=== PATIENT | female | born 1965 | race Caucasian/White ===

== ENCOUNTER → 2018-03-25 11:03 | Outpatient (CLI) | payer OTHER, SELFPAY ==
--- NOTE | 2018-03-25 | DI.RAD.S_ITS ---
PROCEDURE: XR KNEE LT 3V INDICATIONS: PAIN IN LEFT KNEE TECHNIQUE: 3 views of the knee were acquired. COMPARISON: None. FINDINGS: Bones: No fractures or dislocations. No suspicious bony lesions. Mild medial femoral tibial compartment joint space narrowing is seen. No significant patellar subluxation. Soft tissues: There is small amount of suprapatellar joint effusion. No suspicious soft tissue calcifications. IMPRESSION: Mild medial femoral tibial compartment osteoarthritis. Small joint effusion. No fracture or dislocation. Dictated by: Joseph Jj M.D. on 03/25/2018 at 11:23 Approved by: Joseph Jj M.D. on 03/25/2018 at 11:24
== END ==
PROVIDERS: Visit Provider Physician Assistant
DX: M25.562 Pain in left knee (principal); M17.12 Unilateral primary osteoarthritis, left knee; M25.462 Effusion, left knee
CPT/HCPCS: 73562

== ENCOUNTER → 2019-05-23 12:05 | Outpatient (CLI) | payer OTHER, SELFPAY ==
--- NOTE | 2019-05-23 | DI.US.S_ITS ---
PROCEDURE: US PELVIC COMPLETE INDICATIONS: Postmenopausal bleeding TECHNIQUE: Real-time scanning was performed of the pelvic organs, with image documentation. Additional endovaginal scanning was necessary due to incomplete visualization of the adnexal and endometrial structures by transabdominal scanning. COMPARISON: None. FINDINGS: Transabdominal scanning: Limited scanning through the kidneys shows no hydronephrosis. No pathologic free abdominal or pelvic fluid. The uterus is vertically oriented, slightly anteverted. Endovaginal scanning: Uterus: Uterus is normal in size at 9.8 x 4.9 x 6.3 cm including the cervix. The endometrium is ill defined and potentially enlarged measuring 14.2 mm in combined thickness. Ovaries: Neither ovary was seen. No suspicious adnexal masses or fluid. IMPRESSION: 1. Ill-defined endometrium with possible thickening. Further evaluation with gynecologic protocol pelvic MRI, is recommended. 2. Nonvisualization of either ovary, likely atrophic and age-appropriate. Dictated by: Jazmyn Macias M.D. on 05/23/2019 at 17:57 Approved by: Jazmyn Macias M.D. on 05/23/2019 at 18:11
== END ==
PROVIDERS: Visit Provider Student in an Organized Health Care Education/Training Program
DX: N95.0 Postmenopausal bleeding (principal)
CPT/HCPCS: 76830; 76856

== ENCOUNTER → 2019-06-07 15:49 | Outpatient (CLI) | payer OTHER, SELFPAY ==
--- NOTE | 2019-06-07 | DI.MRI.S_ITS ---
PROCEDURE: MR PELVIS WO/W CON INDICATIONS: Postmenopausal bleeding TECHNIQUE: Coronal HASTE, sagittal breath-hold T2 FSE; axial T1 FSE with and without fat saturation through the pelvis. Optional long- and short-axis uterine nonbreath-hold T2 FSE through the uterus. Sagittal or axial dynamic VIBE during administration of contrast. Post-contrast axial or coronal VIBE/2-D FLASH with fat saturation from the iliac crests to the symphysis. Optional diffusion weighted imaging and ADC may be performed. COMPARISON: None. FINDINGS: Image quality: Excellent. Uterus: Uterus is normal in size. Endometrium measures approximately 12 mm. This is slightly less prominent when compared to pelvic ultrasound. Endometrium is mildly heterogeneous. However, no distinct mass is clearly identified. Adnexa: Both ovaries are small and grossly within normal limits Urinary system: Bladder wall is normal in thickness. Distal ureters are non distended. Urethra appears normal in morphology. Nodes and vessels: No pelvic or inguinal adenopathy by size criteria. Iliac vessels are normal in size. Bowel and peritoneum: No pathologic free pelvic fluid. Inferior colon and small bowel loops are normal in caliber. Soft tissues: No inguinal hernias. No findings of pelvic floor incompetence in the absence of provocation. Bones: Marrow demonstrates normal overall signal. IMPRESSION: 1. Thickened endometrium, in a setting of postmenopausal bleeding. While no distinct mass is clinically identified, endometrium does have an irregular appearance. As noted on pelvic ultrasound, endometrial biopsy is recommended to exclude underlying neoplasm. Dictated by: Marjorie Pollard M.D. on 06/07/2019 at 17:15 Approved by: Marjorie Pollard M.D. on 06/07/2019 at 17:19
== END ==
PROVIDERS: PCP Student in an Organized Health Care Education/Training Program; Visit Provider Student in an Organized Health Care Education/Training Program
DX: N95.0 Postmenopausal bleeding (principal); R93.89 Abnormal findings on diagnostic imaging of other specified body structures
CPT/HCPCS: 72197; A9579

== ENCOUNTER 2019-07-28 09:58 | Day surgery (SDC) | payer OTHER, SELFPAY ==
[2019-07-22 13:23] VITALS: BMI 27.4
--- NOTE | 2019-07-28 | PATH_ITS ---
[facility] Accession Number: [id number] . 01 Material submitted: . endometrium - ENDOMETRIAL CURETTINGS . 01 Clinical history: . D/C HYSTEROSCOPY . 02 Diagnosis: Endometrial Curettings: Small fragments of endometrial tissue and strips of endometrial glandular epithelium, some with benign eosinophilic metaplasia; negative for glandular hyperplasia, cytologic atypia, or malignancy. V 07/29/2019 1334 Local . 02 Electronically signed: . Basia Hobson MD, Pathologist NPI- [id number] . 01 Gross description: . ENDOMETRIAL CURETTINGS: Received in formalin are minute fragments of mucoid and hemorrhagic material measuring 0.4 x 0.4 x 0.2 cm in aggregate. Submitted in toto in 1 cassette. /[facility] [place] 07/28/2019 2318 Local . 02 Pathologist provided ICD-10: N95.0, R93.89, N88.2 . 02 CPT . 737649 Performed at: 01 [facility] [address], [place], [place] [id number] MD Romulo Mendieta MD Phone: [phone] Performed at: [address] [facility] [address] [place], [place] [id number] MD Connie Barth MD Phone: [phone]
[2019-07-28 12:12] VITALS: BP 133/79; PULSE 68; RESP 15; TEMP 37.2; O2SAT 99; BMI 27.4
[2019-07-28] MEDS: LACTATED RINGERS 1,000 ML 100 ML IV (12:25)
--- NOTE | 2019-07-28 12:26 | SUR.OPER ---
Lithotomy on padded OR bed, head on pillow, arms secured on padded arm boards at <90 degrees abduction. Legs secured in padded yellow fins stirrups.
--- NOTE | 2019-07-28 13:08 | PM.PREOP ---
Pre-operative Note Interval Note History & Physical reviewed/Exam performed by Physician: Yes Changes to H&P: No
[2019-07-28 14:40] VITALS: BP 110/65; PULSE 60; RESP 10; TEMP 36.8; O2SAT 94
[2019-07-28 14:45] VITALS: BP 111/60; PULSE 67; RESP 12; O2SAT 96
[2019-07-28 14:50] VITALS: BP 122/69; PULSE 61; RESP 15; O2SAT 95
--- NOTE | 2019-07-28 14:54 | PM.GYNOP.1 ---
Operative Date/Time/Diagnoses Date of procedure: 07/28/19 Time of procedure: 14:54 Pre-op diagnosis: Postmenopausal bleeding, thickened endometrium on ultrasound, stenotic cervix Post-op diagnosis: other (Postmenopausal bleeding, atrophic appearing normal endometrium) Procedure & Clinicians Procedure: Procedures Operation Date: 07/28/19 13:15 Actual Procedures Side Surgeon p Hysteroscopy D&C Rosalva Edge MD Indications: Postmenopausal bleeding, thickened endometrium 11-14 mm on ultrasound and MRI, no discrete lesions seen. Office endometrial biopsy attempted, but failed due to stenotic cervix. Surgeon: Rosalva Edge Anesthesia Type: General (LMA) Operative Notes Findings: Atrophic appearing endometrium. No endometrial lesions or abnormal endometrium seen. No endometrial polyps or submucosal fibroids seen. Uterine cavity was mildly septate at the fundus. Cervical canal was normal in appearance. Closure Type: not applicable Specimen(s): endometrial curettings Estimated blood loss (mL): 5 Blood products transfused: none Procedure in detail: After being properly identified she was taken to the operating room. After an adequate level of LMA general anesthesia was obtained, she was placed in the dorsal lithotomy position. Bimanual examination was performed with the above findings. She was prepped and draped in routine sterile fashion. Her bladder was sterilely drained with a rubber catheter with the prep. Time-out was taken and the patient procedure was identified. An open-sided speculum was placed. Her cervix was very proximal. The cervix was grasped with a single-tooth tenaculum. The cervical os was pinpoint. A very small cervical dilator was able to be passed. Her cervix was then further dilated with Hegar dilators up to a 5, but was difficult dilating further. Sounding only went to 4 cm, which appeared consistent with not being through the internal cervical os. I placed the scope and could see the internal cervical os open for sampling. At this time I made the decision to sample with an endometrial Pipelle, to obtain some sample since further dilatation was going to have some increased risk for uterine perforation with the very tight cervix. Endometrial Pipelle was passed. Uterus sounded to 10 cm. Global curettage performed with a Pipelle for a scant amount of tissue consistent with probable atrophic endometrium. I then re-attempted to dilate her further for the hysteroscopy. I was able to dilate her further, enough to accommodate hysteroscopy. The small diagnostic hysteroscope was placed. Normal saline solution was used as a uterine distention medium. I could not obtain visualization due to now bloody fluid within the cavity and not clearing with the hysteroscope. I was able to further dilate her up to a number 9, and was able to place the operative hysteroscope. With the larger outflow channels with the scope, the cloudy fluid cleared and good visualization of the uterine cavity was obtained up to the uterine fundus and throughout. The cavity did have a mildly septated appearance at the fundus with more prominent uterine horns. The endometrium appeared normal and atrophic throughout the cavity.. There were no polyps or fibroids. The cervical canal appeared normal. The tubal ostia were visualized. The hysteroscope was removed. The curette was now passed an additional curettage of the cavity was performed and added to the for sample. The tenaculum was removed. There was good hemostasis noted at the tenaculum sites. The procedure was ended. She tolerated the procedure well and was transferred to recovery room in stable condition. Complications: none Post-operative Condition: stable Disposition: PACU Plan for aftercare: Discharge home. Follow-up in the office in 2 weeks. Routine postop precautions given.
[2019-07-28 15:00] VITALS: BP 114/67; PULSE 62; RESP 16; O2SAT 95
[2019-07-28 15:10] VITALS: BP 114/69; PULSE 62; RESP 15; O2SAT 94
[2019-07-28] MEDS: OXYCODONE/ACETAMINOPHEN 5/325 TABLET 1 TAB PO (15:14)
== END 2019-07-28 15:40 | disposition home or self-care (01) ==
PROVIDERS: PCP Student in an Organized Health Care Education/Training Program; Referring Provider Obstetrics & Gynecology; Visit Provider Obstetrics & Gynecology
PROC: 0UDB8ZZ Extraction of Endometrium, Via Natural or Artificial Opening Endoscopic (ICD-10-PCS; CPT 58558; principal; 2019-07-28 13:15)
DX: N95.0 Postmenopausal bleeding (principal); R93.89 Abnormal findings on diagnostic imaging of other specified body structures; N88.2 Stricture and stenosis of cervix uteri
CPT/HCPCS: 58558; J1100; J2250; J2405; J2704; J3010

== ENCOUNTER 2022-04-08 08:21 | Outpatient (CLI) | payer OTHER, SELFPAY ==
[2022-04-08] VITALS (8 sets, daily range): BP systolic 114–169; BP diastolic 72–83; PULSE 61–67; RESP 12–20; TEMP 36.1; O2SAT 98–100
--- NOTE | 2022-04-08 08:22 | DI.RAD.S_ITS ---
PROCEDURE: PAIN C/T FACET INJ/BLK 1ST L INDICATIONS: SPINAL STENOSIS COMPARISON: None. FINDINGS: Fluoroscopic spot filming was performed to verify placement of spinal needles at the left side of C5-6 and C6-7 level(s), as labeled on the films. Appropriate location(s) of the needle tip(s) was confirmed by injection of iodinated contrast. IMPRESSION: Fluoro guidance was provided intraoperatively for left C5-6 and C6-7 facet joint injection performed by the ordering physician. Dictated by: Joseph Jj M.D. on 04/08/2022 at 11:02 Approved by: Joseph Jj M.D. on 04/08/2022 at 11:10
[2022-04-08] MEDS: IOPAMIDOL 15 ML VIAL 3 ML INJ (10:05)
[2022-04-08] MEDS: DEXAMETHASONE 10 MG/ML VIAL 20 MG INJ (10:06)
[2022-04-08] MEDS: BUPIVACAINE 0.5% (PF) VIAL 2 ML INJ (10:06)
--- NOTE | 2022-04-08 10:20 | P.PCN_ITS ---
Date/Time/Diagnoses Date of procedure: 04/08/22 Time of procedure: 10:20 Pre-procedure diagnosis: 1. FACET ARTHROPATHY 2. AXIAL NECK PAIN Post-procedure diagnosis: same Procedure Notes Procedure: 1. FLUOROSCOPICALLY GUIDED, CONTRAST-CONTROLLED LEFT C5/6 AND C6/7 FACET JOINT INJECTIONS WITH CONSCIOUS SEDATION. Indications: Shashank is referred by Dr. Ch for treatment of Axial Neck Pain Physician: Mason Meredith Total Fluoroscopy time (seconds): 11 Total sedation minutes: 13 Complications: none Procedure in detail & Post-procedure care: DESCRIPTION OF PROCEDURE Fluoroscopically guided, contrast-controlled left C5/6 and C6/7 facet joint injections with conscious sedation. Following review of allergy and review of potential side effects and complications, including, but not necessarily limited to, infection, allergic reaction, local tissue breakdown, stroke, temporary or permanent nerve injury and paralysis, the patient indicated that the patient understood and agreed to proceed. An informed consent document was signed by the patient, witnessed by a nurse, and placed in the patient's chart. Additionally, other treatment options including medications, modalities, and physical therapy were reviewed with the patient. After review of previous anaesthesic history and IV conscious sedation the patient was deemed safe to proceed with today?s procedure with IV conscious sedation as ASA class II designation. Safety time-out was performed to confirm patient ID, procedure to be performed and site of procedure. IV sedation was accomplished with a combination of 2mg of Versed was administered by the RN after DO order, titrated to patient comfort during the course of the procedure while the patient remained responsive to all verbal commands In the prone position, following sterile prep and drape of the cervical spine region, the posterior aspect of the left C5/6 and C6/7 facet joints were identified fluoroscopically. The skin was anesthetized via a 25-gauge 1.5-inch needle with 1% lidocaine solution into the corresponding facet joints. At this point, a 25-gauge 2.5-inch spinal needle was atraumatically introduced and advanced under fluoroscopic guidance into the corresponding facet joints. Following negative aspiration, injections of approximately 0.2cc of Isovue 200 confirmed interarticular placement without vascular uptake. At this point, a total of 1cc including 0.5cc or 5mg of dexamethasone combined with 0.5cc of 1% lidocaine solution was injected without complication into each of the corresponding facet joints. The procedure tolerated the procedure well without signs or symptoms of complications prior to transfer to the recovery area continued monitoring without incident. The patient was then transferred to the recovery area where they were observed for an appropriate period of time after the injection. The patient reported a VAS score of 7 prior to the procedure and a post- procedure VAS of 0. POST OP INSTRUCTIONS They were provided a Pain Log to continue to record their response to the target-specific procedure prior to their follow-up visit with their referring physician. Additionally, specific post-injection care instructions and a contact number to our office were provided if concerns arise regarding possible complications associated with the procedure are suspected.
== END 2022-04-08 10:35 | disposition home or self-care (01) ==
LOC: RAD 08:21
PROVIDERS: PCP Family Medicine; Referring Provider Physical Medicine & Rehabilitation; Visit Provider Physical Medicine & Rehabilitation
DX: M47.812 Spondylosis without myelopathy or radiculopathy, cervical region (principal)
CPT/HCPCS: 64490; 64491; 99152; J1100; J2250